=== PATIENT | female | born 1940 | race Caucasian/White ===

== ENCOUNTER → 2016-11-06 | Outpatient (CLI) | payer MEDICARE ==
[2016-11-06 09:36] LABS: BASO % 0.3 % (0.0-1.0); EOS # 0.5 10*3/uL (0.0-0.4); EOS % 5.5 % (1.0-4.0); HEMATOCRIT 44.7 % (37.0-47.0); HEMOGLOBIN 14.6 g/dl (12.0-16.0); LYMPH # 2.8 10*3/uL (1.3-4.4); MEAN CELL VOLUME 96.1 fl (81.0-99.0); MEAN CORPUSCULAR HGB 31.4 pg (27.0-31.0); MEAN CORPUSCULAR HGB CONC 32.7 g/dl (33.0-37.0); MEAN PLATELET VOLUME 10.3 fl (9.6-12.3); MONO # 1.2 10*3/uL (0.1-1.0); MONO % 12.3 % (3.0-9.0); NEUT # 5.1 10*3/uL (2.3-7.9); NEUT % 52.6 % (47.0-73.0); PLATELET COUNT AUTOMATED 279 10*3/uL (130-400); RED BLOOD COUNT 4.65 10*6/uL (4.10-5.10); RED CELL DISTRI WIDTH 13.2 % (0-14.5); WHITE BLOOD COUNT 9.7 10*3/uL (4.8-10.8)
[2016-11-06 10:01] LABS: ALKALINE PHOSPHATASE 99 U/L (45-117); BUN 12 mg/dl (7-24); CHLORIDE 105 mmol/L (98-107); CHOLESTEROL 188 mg/dL (<200); CREATININE 0.65 mg/dL (0.55-1.02); POTASSIUM 4.3 mmol/L (3.5-5.1); SGOT/AST 15 IU/L (3-35); SGPT/ALT 17 U/L (12-78); SODIUM 140 mmol/L (136-145); TOTAL PROTEIN 8.5 gm/dL (6.4-8.2); TRIGLYCERIDES 142 mg/dl (<150); VLDL CHOLESTEROL 28 mg/dL (6-40)
[2016-11-06 10:09] LABS: HDL CHOLESTEROL 62 mg/dl (40-60); LDL CHOLESTEROL 98 mg/dL (9-159)
== END | disposition home or self-care (01) ==
LOC: LAB 09:07
PROVIDERS: Internal Medicine
DX: Z13.9 Encounter for screening, unspecified (principal); R25.1 Tremor, unspecified; L60.9 Nail disorder, unspecified; M25.40 Effusion, unspecified joint; R79.89 Other specified abnormal findings of blood chemistry

== ENCOUNTER → 2017-06-14 | Outpatient (CLI) | payer MEDICARE ==
[2017-06-14 12:59] LABS: HEMATOCRIT 46.4 % (37.0-47.0); HEMOGLOBIN 15.1 g/dl (12.0-16.0); MEAN CELL VOLUME 96.7 fl (81.0-99.0); MEAN CORPUSCULAR HGB 31.5 pg (27.0-31.0); MEAN CORPUSCULAR HGB CONC 32.5 g/dl (33.0-37.0); MEAN PLATELET VOLUME 10.7 fl (9.6-12.3); RED BLOOD COUNT 4.8 10*6/uL (4.10-5.10); RED CELL DISTRI WIDTH 12.6 % (0-14.5); WHITE BLOOD COUNT 9.4 10*3/uL (4.8-10.8)
[2017-06-14 13:26] LABS: ALBUMIN 4.3 gm/dl (3.1-4.5); ALKALINE PHOSPHATASE 100 U/L (45-117); BUN 10 mg/dl (7-24); CHLORIDE 103 mmol/L (98-107); CHOLESTEROL 204 mg/dL (<200); HDL CHOLESTEROL 62 mg/dl (40-60); LDL CHOLESTEROL 100 mg/dL (9-159); POTASSIUM 3.7 mmol/L (3.5-5.1); SGOT/AST 16 IU/L (3-35); SGPT/ALT 18 U/L (12-78); SODIUM 138 mmol/L (136-145); TOTAL PROTEIN 8.8 gm/dL (6.4-8.2); TRIGLYCERIDES 211 mg/dl (<150); VLDL CHOLESTEROL 42 mg/dL (6-40)
== END | disposition home or self-care (01) ==
LOC: MAMMO 11:30 → LAB 11:34
DX: R25.1 Tremor, unspecified (principal); R42 Dizziness and giddiness; Z79.899 Other long term (current) drug therapy; Z12.31 Encounter for screening mammogram for malignant neoplasm of breast

== ENCOUNTER → 2019-03-31 | Outpatient (CLI) | payer MEDICARE | END | disposition home or self-care (01) | LOC: RAD 15:59 | DX: M47.814 Spondylosis without myelopathy or radiculopathy, thoracic region (principal); M47.816 Spondylosis without myelopathy or radiculopathy, lumbar region ==

== ENCOUNTER 2019-09-07 15:46 | Observation (INO) | payer MEDICARE ==
[~2019-09-07] VITALS: Ht 162.6 cm; Wt 58.6 kg
[2019-09-07 16:05] VITALS: BP 178/83
[2019-09-07 16:57] LABS: BASO # 0.1 10*3/uL (0.0-0.1); BASO % 0.8 % (0.0-1.0); EOS # 0.3 10*3/uL (0.0-0.4); EOS % 3.7 % (1.0-4.0); LYMPH # 1.9 10*3/uL (1.3-4.4); LYMPH % 24.1 % (27.0-41.0); MEAN CELL VOLUME 96.5 fl (81.0-99.0); MEAN CORPUSCULAR HGB 30.7 pg (27.0-31.0); MEAN CORPUSCULAR HGB CONC 31.8 g/dl (33.0-37.0); MEAN PLATELET VOLUME 10.6 fl (9.6-12.3); MONO # 0.9 10*3/uL (0.1-1.0); MONO % 11.8 % (3.0-9.0); NEUT # 4.6 10*3/uL (2.3-7.9); NEUT % 59.5 % (47.0-73.0); PLATELET COUNT AUTOMATED 283 10*3/uL (130-400); RED BLOOD COUNT 4.56 10*6/uL (4.10-5.10); RED CELL DISTRI WIDTH 13.1 % (0-14.5); WHITE BLOOD COUNT 7.8 10*3/uL (4.8-10.8)
[2019-09-07 17:02] VITALS: BP 165/90
--- NOTE | 2019-09-07 17:03 | NUR ---
PATIENT DENIES WOUNDS A&OX4.
[2019-09-07 17:07] LABS: ACT PARTIAL THROMBO TIME 25.5 SECONDS (20.0-32.1); INTERNATIONAL NORM RATIO 0.9 (2.0-3.5)
[2019-09-07 17:14] LABS: ALBUMIN 3.9 gm/dl (3.1-4.5); ALKALINE PHOSPHATASE 100 U/L (45-117); BUN 16 mg/dl (7-24); CHLORIDE 107 mmol/L (98-107); CREATININE 0.86 mg/dL (0.55-1.02); LIPASE 118 U/L (73-393); POTASSIUM 4.1 mmol/L (3.5-5.1); SGOT/AST 12 IU/L (3-35); SGPT/ALT 22 U/L (12-78); SODIUM 142 mmol/L (136-145); TOTAL PROTEIN 7.9 gm/dL (6.4-8.2); TROPONIN I < 0.015 ng/ml (<0.045)
[2019-09-07 20:32] VITALS: BP 165/90
[2019-09-07 20:42] VITALS: BP 190/90
--- NOTE | 2019-09-07 20:42 | NUR ---
A 78, admitted to , under the services of ERIC Nielsen DO with a diagnosis of NEAR SYNCOPE. Chief complaint is DIZZYNESS AND HEAD PRESSURE AT HOME. Patient arrived via bed from ER. Monitor applied. Initial assessment completed. Vital signs taken and recorded. ERIC NIELSEN DO notified of admission to the unit. Orders received. See assessment for past medical history, medications and allergies. Patient and/or family oriented to [facility]. visitation policy reviewed. Clothing/patient valuable form completed. LIN PARISH RN
[2019-09-07 21:20] VITALS: BP 190/90
[2019-09-07 21:25] LABS: BILIRUBIN 1+ (NEGATIVE); BLOOD NEGATIVE (NEGATIVE); CLARITY CLOUDY (CLEAR); COLOR YELLOW (YELLOW); GLUCOSE NEGATIVE (NEGATIVE); KETONE NEGATIVE (NEGATIVE); SPECIFIC GRAVITY 1.015 (1.005-1.030)
[2019-09-07 21:26] LABS: LEUKO ESTERASE NEGATIVE (NEGATIVE); NITRITE NEGATIVE (NEGATIVE); UROBILINOGEN 0.2 E.U./dl (0.2-1.0)
--- NOTE | 2019-09-07 21:37 | NUR ---
ONE TIME DOSE OF APRESOLINE GIVEN IV AT THIS TIME WITHOUT INCIDENT FOR B/P 190/90. SEE EMAR AND ORDERS. PATIENT TOLERATED WITHOUT INCIDENT. WILL MONITOR B/P. A&O X3, CALL LIGHT WITHIN REACH.
[2019-09-07 22:32] VITALS: BP 137/69
--- NOTE | 2019-09-07 22:39 | NUR ---
DR. HERRERA NOTIFIED OF PATIENT B/P 136/69 AFTER ONE TIME DOSE APRESOLINE IV WAS GIVEN
[2019-09-08] VITALS: BP 137/69
--- NOTE | 2019-09-08 00:05 | NUR ---
ASSMUMED CARE OF PATIENT, PATIENT IS RESTING IN BED ON ROOM AIR IN NO DISTRESS STATES NO NEEDS AT THIS TIME. LUNGS CLEAR, HRR, BP STABLE. CALL LIGHT IN REACH.
[2019-09-08 05:15] VITALS: BP 144/62
[2019-09-08 06:15] LABS: BUN 14 mg/dl (7-24); CHLORIDE 109 mmol/L (98-107); CHOLESTEROL 157 mg/dL (<200); CREATININE 0.63 mg/dL (0.55-1.02); HDL CHOLESTEROL 54 mg/dl (40-60); LDL CHOLESTEROL 76 mg/dL (9-159); POTASSIUM 3.9 mmol/L (3.5-5.1); SODIUM 141 mmol/L (136-145); TRIGLYCERIDES 135 mg/dl (<150); VLDL CHOLESTEROL 27 mg/dL (6-40)
[2019-09-08 06:23] LABS: FREE T4 0.88 ng/dl (0.76-1.46)
[2019-09-08 06:26] LABS: BASO # 0.1 10*3/uL (0.0-0.1); BASO % 0.8 % (0.0-1.0); EOS # 0.3 10*3/uL (0.0-0.4); EOS % 5.1 % (1.0-4.0); HEMATOCRIT 42.4 % (37.0-47.0); LYMPH # 1.7 10*3/uL (1.3-4.4); LYMPH % 27.6 % (27.0-41.0); MEAN CELL VOLUME 94.9 fl (81.0-99.0); MEAN CORPUSCULAR HGB 30.6 pg (27.0-31.0); MEAN CORPUSCULAR HGB CONC 32.3 g/dl (33.0-37.0); MEAN PLATELET VOLUME 10.8 fl (9.6-12.3); MONO # 0.9 10*3/uL (0.1-1.0); MONO % 14.9 % (3.0-9.0); NEUT # 3.2 10*3/uL (2.3-7.9); NEUT % 51.4 % (47.0-73.0); PLATELET COUNT AUTOMATED 274 10*3/uL (130-400); RED BLOOD COUNT 4.47 10*6/uL (4.10-5.10); RED CELL DISTRI WIDTH 13.1 % (0-14.5); WHITE BLOOD COUNT 6.1 10*3/uL (4.8-10.8)
--- NOTE | 2019-09-08 07:10 | NUR ---
ARRIVED ON SHIFT, RECEIVED REPORT FROM OFFGOING NURSE, ASSUMED CARE FROM PATIENT.
[2019-09-08 07:22] LABS: VITAMIN D, 25-HYDROXY 37.1 ng/mL (30-100)
--- NOTE | 2019-09-08 10:27 | NUR ---
PHYSICAL THERAPY Observation Physical Therapy evaluation completed on 5E with full evaluation to follow. Recommend physical therapy per plan of care and Home Health vs. Outpatient PT upon discharge, pending progression with dizziness. Thank you for this referral. Kathy Sheridan,PT,DPT
[2019-09-08 10:30] VITALS: BP 190/110
--- NOTE | 2019-09-08 10:30 | NUR ---
Occupational Therapy evaluation completed on five with full evaluation to follow. Recommend occupational therapy per plan of care and home with HH versus outpatient pending patient's dizziness upon discharge. Thank you for this referral. Rajani Wiseman OTR/L
--- NOTE | 2019-09-08 10:30 | NUR ---
LEANN ROSENBERG ADVISED OF BP 140/90 WITH ACTIVITY AND 190/110 WHEN IYING DOWN.
[2019-09-08 12:00] VITALS: BP 169/96
--- NOTE | 2019-09-08 12:33 | NUR ---
NOTIFIED FOUZIA ROSENBERG IF CONTINUED EEVATED BP. AND DIZZINESS
--- NOTE | 2019-09-08 13:29 | NUR ---
Office Executive in to talk to patient. Patient states lives at HOME with DAUGHTER AND SON IN LAW. There are NO steps in the home. Physician: ADELAIDA LARES [facility] Home health services: NONE Patient's level of ADLs: INDEPENDENT Patient has working utilities: YES DME: CANE IF SHE GOES OUT Follow-up physician's appointment after d/c: WILL BE MADE BY HOSPITALIST NURSE DIRECTOR ON DISCHARGE Does patient want to access PORTAL?: NO Discharge plan PT LIVES AT HOME WITH HER DAUGHTER AND SON IN LAW. PT STATES SHE IS INDEPENDENT IN HER CARE. DENIES HOME NEEDS. PLAN IS TO RETURN HOME ON DISCHARGE WITH DAUGHTER. WILL CONTINUE TO FOLLOW. STATES SHE WILL HAVE A RIDE HOME.. GEORGINA RAMIREZ
[2019-09-08 16:00] VITALS: BP 169/83
[2019-09-08 20:00] VITALS: BP 148/90
--- NOTE | 2019-09-08 23:06 | NUR ---
TYLENOL GIVEN PER PT REQUEST FOR HEADACHE
[2019-09-09] VITALS: BP 154/92
--- NOTE | 2019-09-09 | NUR ---
TYLENOL EFFECTIVE FOR QUACH
--- NOTE | 2019-09-09 02:11 | NUR ---
PATIENT RESTING ON RT SIDE, EASY REG RESPIRATIONS ON ROOM AIR. CALL LIGHT IN REACH.
[2019-09-09 08:00] VITALS: BP 126/60
--- NOTE | 2019-09-09 08:30 | NUR ---
PT GETTING ECHO AT THIS TIME. WILL CHECK BACK FOR ASSESSMENT.
[2019-09-09 08:32] VITALS: BP 123/86
--- NOTE | 2019-09-09 10:30 | NUR ---
PHYSICAL THERAPY Patient seen this am 1;1 for therapy visit and was sitting up in bedside chair upon therapist arrival. Patient identified by name / and was very pleasant this morning, voicing no c/o's dizziness. Patient did state however she was feeling generalized, global weakness from sitting around too much the past few days in the hospial and was joined by OT phlebotomy lab assistant for observation this session. Patient recorded resting, seated BP 96/60, prior to transfering sit to stand, SBA x 1. Patient standing BP 110/71 before ambulating ad jam in hallway, no AD, SBA, demonstrating steady laura during various gait speed changes. Patient needed v/c to improve B arm swing, tolerated eyes open / closed without LOB and returned to bedside chair with increased fatigue. Total gait distance was > 100'x 1 as patient recorded BP 137/80 following gait ex, HR 89 bpm and SpO2 97% on room air. Patient remained in bedside chair with call light, tray table and telephone. Will continue per POC as tolerated, total treatment time 16 minutes. Feng Mercado, [employer]
--- NOTE | 2019-09-09 10:48 | NUR ---
OT NOTE Pt was seen this A.M. 1:1 for 25 minute OT session. Upon arrival pt was sitting upright in the recliner. Pt identified by name and and had no complaints at this time stating "I feel great, I am ready to go home." At rest while seated pt's blood pressure read 96/60 and heart rate 81 bpm. While seated pt doffed and donned B socks ME. Sit to stand completed from chair level with SBA, upon inital rise pt's blood pressure read 110/71 and heart rate 100 bpm. Challenged pt's static standing tolerance needed for increased I and enhanced endurance pt was able to tolerate aprox 7 minutes before sitting due to fatigue. No complaints of any kind throughout stand noted. Sit to stand then completed from chair level with SBA followed by functional mobility to the bathroom with CGA for safety. Throughout mobility pt required one verbal prompt to slow down due to being impulsive increasing risk of falls, pt presented with good carry over throughout remainder of session. She then transferred on/off standard commode with SBA for safety and clothing management completed with SBA. She then stood sink side while washing her hands and face with SBA. Functional mobility then completed back to the recliner with SBA. Pt's blood pressure immediately checked once returning to chair from activity and read 137/81 and heart rate 89 bpm. After a seated rest break challenged pt's dynamic standing balance while weight shifting, crossing midline, and reaching over all planes and pt was able to maintain F+/G- standing balance throughout. Pt was left sitting upright in the recliner with call light in hand, tray table in place, and phone in reach. Continue with POC as able. KP Sanchez/Cheryl
--- NOTE | 2019-09-09 11:32 | NUR ---
PT CONTINUES TO DENY NEEDS AT HOME. WILL BE DISCHARGED TO HOME WHEN MEDICALLY STABLE.
[2019-09-09 12:03] VITALS: BP 118/68
[2019-09-09] MEDS ORDERED: MECLIZINE HYD12.5 MG PO (12:21)
[2019-09-09] MEDS ORDERED: AMLODIPINE BESYL5 MG PO ×2 (12:21→12:26)
[2019-09-09 13:00] VITALS: BP 111/61
--- NOTE | 2019-09-09 14:50 | NUR ---
Discharge instructions reviewed with patient/family. Patient receptive and verbalizes understanding. Follow-up care arranged. Written instructions given to patient/family. BILLIE JACKSON
--- NOTE | 2019-09-10 07:23 | NUR ---
PHYSICAL THERAPY CO-SIGN I approve of the Physical Therapy notes written above. Shobha Patel PT
--- NOTE | 2019-09-10 07:50 | NUR ---
OCCUPATIONAL THERAPY CO-SIGN I approve of the Occupational Therapy notes written above. NORMA WILDE, OTR/L
== END 2019-09-09 16:33 | disposition home or self-care (01) ==
LOC: ED 15:46 → EDHOLD 18:18 → 5E 19:03
PROVIDERS: Internal Medicine; Nurse Practitioner Family; ADMIT Family Medicine
DX: R55 Syncope and collapse (principal); R11.2 Nausea with vomiting, unspecified; I16.0 Hypertensive urgency; M43.6 Torticollis; E87.8 Other disorders of electrolyte and fluid balance, not elsewhere classified

== ENCOUNTER → 2020-09-17 | Outpatient (CLI) | payer MEDICARE ==
[~2020-09-17] MED LIST: AMLODIPINE BESYL5 MG PO; MECLIZINE HYD12.5 MG PO
== END | disposition home or self-care (01) ==
LOC: CT 13:00
PROVIDERS: ATTEND Physician Assistant
DX: I63.81 Other cerebral infarction due to occlusion or stenosis of small artery (principal); I67.89 Other cerebrovascular disease

== ENCOUNTER → 2022-09-11 | Outpatient (CLI) | payer OTHER ==
[2022-09-11 11:07] LABS: BASO # 0.1 10*3/uL (0.0-0.1); BASO % 0.9 % (0.0-1.0); EOS # 0.3 10*3/uL (0.0-0.4); HEMATOCRIT 49.2 % (37.0-47.0); LYMPH # 1.4 10*3/uL (1.3-4.4); LYMPH % 23.9 % (27.0-41.0); MEAN CELL VOLUME 96.1 fl (81.0-99.0); MEAN CORPUSCULAR HGB 31.3 pg (27.0-31.0); MEAN CORPUSCULAR HGB CONC 32.5 g/dl (33.0-37.0); MEAN PLATELET VOLUME 10.2 fl (9.6-12.3); MONO # 0.9 10*3/uL (0.1-1.0); MONO % 14.8 % (3.0-9.0); NEUT # 3.2 10*3/uL (2.3-7.9); NEUT % 55.2 % (47.0-73.0); PLATELET COUNT AUTOMATED 261 10*3/uL (130-400); RED BLOOD COUNT 5.12 10*6/uL (4.10-5.10); RED CELL DISTRI WIDTH 12.6 % (0-14.5); WHITE BLOOD COUNT 5.8 10*3/uL (4.8-10.8)
[2022-09-11 12:01] LABS: ALKALINE PHOSPHATASE 106 U/L (46-116); BUN 12 mg/dl (9-23); CHLORIDE 106 mmol/L (98-107); CHOLESTEROL 161 mg/dL (<200); FREE T4 0.81 ng/dl (0.89-1.76); LDL CHOLESTEROL 82 mg/dL (9-159); POTASSIUM 3.8 mmol/L (3.4-5.1); SGPT/ALT 11 U/L (10-49); TOTAL PROTEIN 8.1 gm/dL (6.0-8.0); TRIGLYCERIDES 91 mg/dl (<150)
[2022-09-11 12:02] LABS: VITAMIN D, 25-HYDROXY 59.4 ng/mL (30-100)
== END | disposition home or self-care (01) ==
LOC: LAB 10:40
PROVIDERS: ATTEND Internal Medicine
DX: Z13.220 Encounter for screening for lipoid disorders (principal); Z13.228 Encounter for screening for other metabolic disorders; Z13.29 Encounter for screening for other suspected endocrine disorder; Z13.6 Encounter for screening for cardiovascular disorders; Z13.89 Encounter for screening for other disorder; Z13.9 Encounter for screening, unspecified; I10 Essential (primary) hypertension; Z79.899 Other long term (current) drug therapy

== ENCOUNTER → 2022-12-27 | Outpatient (CLI) | payer OTHER | END | disposition home or self-care (01) | LOC: CARD 00:18 | PROVIDERS: ATTEND Internal Medicine | DX: I35.9 Nonrheumatic aortic valve disorder, unspecified (principal); Z79.899 Other long term (current) drug therapy ==